=== PATIENT | female | born 1955 | race Caucasian/White ===

== ENCOUNTER 2019-07-06 17:32 | Observation (INO) | payer MEDICARE ==
[2019-07-06] MEDS ORDERED: Fentanyl 100 MCG/2 ML VIAL ONE (17:56)
[2019-07-06] MEDS ORDERED: Acetaminophen 650 MG Suppository PR PRN (19:42)
--- NOTE | 2019-07-06 19:50 | PDOC.HHP ---
Hospitalist HPI - History of Present Illness Snake bite on left hand History of Present Illness: Patient presents after being bit by a copperhead snake earlier today while she was gardening. She was bit on the medial aspect of the left 3rd finger. She states her hand immediately swelled and became painful. She got herself ready and called an ambulance. Patient was seen at [place] [facility] initially, then transferred here for admission and to continue Crofab. Patient states she has been experiencing significant pain but has eased to 5/10 with analgesia given in the ER. Her pain was initially extending to her shoulder, but now is up to her elbow. The swelling has gone down as well. ED Course: Given Morphine, Zofran, Tdap and Crofab at [place] [facility]. Labs done showed: 392 fibrinogen, 25.9 PTT, 12.8 PT, INR 1.0, CK 172, WBC 7.7 She received Fentanyl and more Zofran due to nausea and persisting pain. Hospitalist ROS - Review of Systems Constitutional: reports: sweats. denies: fever, chills, weakness, malaise, other Eyes: denies: pain, vision change, conjunctivae inflammation, eyelid inflammation, redness, other ENT: denies: ear pain, ear discharge, nose pain, nose discharge, nose congestion , mouth pain, mouth swelling, throat pain, throat swelling, other Respiratory: denies: cough, dry, shortness of breath, hemoptysis, SOB with excertion, pleuritic pain, sputum, wheezing, other Cardiovascular: denies: chest pain, palpitations, orthopnea, paroxysmal noc. dyspnea, edema, light headedness, other Gastrointestinal: reports: nausea. denies: vomiting, abdominal pain, diarrhea, constipation, melena, hematochezia, other Genitourinary: denies: dysuria, frequency, incontinence, hematuria, retention, other Musculoskeletal: reports: arm pain (left), hand pain (left with swelling) Neurological: denies: weakness, numbness, incoordination, change in speech, confusion, seizures (normal sensation in LUE), other - Medication Medications: Needs to be verified. Hospitalist History - Past Medical History Source: patient Cardiac: reports: HTN, Hyperlipidemia Pulmonary: reports: COPD Gastrointestinal: reports: GERD Musculoskeletal: reports: Osteoarthritis - Past Surgical History Past Surgical History: reports: Hysterectomy, Hernia Repair (inguinal), Tonsillectomy - Social History Smoking Status: Current every day smoker (1.5 ppd x 30 years) Alcohol: reports: None Drugs: reports: marijuana (previously) Living Situation: Alone Activity level: uses cane/walker - Exam General - other findings: appears to be in mild discomfort, pallor Eye: PERRL, anicteric sclera ENT: normocephalic atraumatic, no oropharyngeal lesions Neck: supple, no lymphadenopathy Heart: RRR, normal peripheral pulses Respiratory: CTAB, no wheezes, no rales, no ronchi, normal chest expansion, no tachypnea Gastrointestinal: soft, non-tender, non-distended, normal bowel sounds, no guarding, no rigidity Extremities - other findings: Swelling of right hand extending to elbow, no erythema Skin - other findings: blister over medial aspect of 3rd left finger where bitten Neurological: cranial nerve grossly intact Musculoskeletal: normal tone Psychiatric: normal affect, normal behavior, A&O x 3 Hospitalist Results - EKG Interpretation EKG: NSR, HR 70 (Done at [place]) Hospitalist H&P A/P - Problem (1) Snake bite Code(s): W59.11XA - BITTEN BY NONVENOMOUS SNAKE, INITIAL ENCOUNTER Status: Acute (2) Left upper extremity swelling Code(s): M79.89 - OTHER SPECIFIED SOFT TISSUE DISORDERS Status: Acute (3) Nausea Code(s): R11.0 - NAUSEA Status: Acute (4) Essential hypertension Code(s): I10 - ESSENTIAL (PRIMARY) HYPERTENSION Status: Acute (5) Hyperlipidemia Code(s): E78.5 - HYPERLIPIDEMIA, UNSPECIFIED Status: Acute (6) GERD (gastroesophageal reflux disease) Code(s): K21.9 - GASTRO-ESOPHAGEAL REFLUX DISEASE WITHOUT ESOPHAGITIS Status: Acute (7) Arthritis Code(s): M19.90 - UNSPECIFIED OSTEOARTHRITIS, UNSPECIFIED SITE Status: Acute (8) Tobacco dependence Code(s): F17.200 - NICOTINE DEPENDENCE, UNSPECIFIED, UNCOMPLICATED Status: Acute - Plan Plan: Continue crofab Repeat labs (CBC, BMP, Fibrinogen, PT, PTT and INR), CK, lactate 12 hours post bite. Will remain on tele/obs. Gentle IV hydration Continue pain control Reconcile home medications once verified Monitor BP GI Prophylaxis with Famotidine. DVT prophylaxis: Mechanical SCDs, walking program consulted. CODE STATUS FULL Surrogate decision maker: her sister Alejandra Butler.
[2019-07-06 20:05] LABS: Lactic Acid 0.9 mmol/L (0.5-2.2)
[2019-07-06 20:09] LABS: ALT (SGPT) 116 U/L (8-55); AST (SGOT) 100 U/L (5-34); Albumin 3.8 g/dL (3.4-4.8); Alkaline Phosphatase 89 U/L (40-110); Anion Gap 14 mmol/L (10-20); BUN (Urea Nitrogen) 17 mg/dL (9.8-20.1); Bilirubin, Total 0.6 mg/dL (0.2-1.2); Calc. Creatinine Clearance 0 mL/min (70-130); Calcium 9.1 mg/dL (7.8-10.44); Carbon Dioxide 25 mmol/L (23-31); Chloride 106 mmol/L (98-107); Estimated GFR-MDRD 76; Globulin 3.3 g/dL (2.4-3.5); Glucose 96 mg/dL (80-115); Magnesium 1.9 mg/dL (1.6-2.6); Potassium 3.4 mmol/L (3.5-5.1); Protein, Total 7.1 g/dL (6.0-8.3); Sodium 142 mmol/L (136-145)
[2019-07-06] MEDS ORDERED: Fentanyl 100 MCG/2 ML VIAL SLOW IVP PRN (21:17)
[2019-07-06 21:26] LABS: #Eosinphils 0.1 thou/uL (0.0-0.7); #Lymphocytes 2.2 thou/uL (1.20-3.40); #Monocytes 0.4 thou/uL (0.11-0.59); %Basophils 0.3 % (0.0-1.0); %Eosinophils 0.6 % (0.0-10.0); %Lymphocytes 25.1 % (21.0-51.0); %Monocytes 5.1 % (0.0-10.0); %Neutrophils 68.9 % (42.0-75.0); Mean Corpuscular Hemoglobin 29.6 pg (27.0-31.0); Mean Corpuscular Volume 89.8 fL (78.0-98.0); Platelet Count 153 thou/uL (130-400); RBC Distribution Width 13.2 % (11.5-14.5); Red Blood Cell (RBC) Count 5.06 mill/uL (4.20-5.40); White Blood Cell (WBC) Count 8.7 thou/uL (4.8-10.8)
[2019-07-06 21:30] LABS: PTT 25.6 SEC (22.9-36.1)
[2019-07-06] MEDS ORDERED: Ondansetron PF 4 MG/2 ML Vial IVP PRN (21:30)
[2019-07-06] MEDS ORDERED: Morphine 4 MG/ML VIAL SLOW IVP PRN (21:30)
[2019-07-06] MEDS ORDERED: HOLD ALL ANTI-COAGULANTS/ANTI-PLATELETS/NSAIDS PO SCH (21:30)
[2019-07-06] MEDS ORDERED: diphenhydrAMINE 50 MG/ML VIAL IVP PRN (21:30)
[2019-07-06 21:39] LABS: Lactic Acid 0.9 mmol/L (0.5-2.2)
[2019-07-06] MEDS: Famotidine/PF 20 mg/2ml Vial SLOW IVP SCH (21:47)
[2019-07-06] MEDS: Crotalidae Polyvlnt Antivenin 2 GM in Sodium Chloride 0.9% 250 ML 250 ML IVPB SCH (21:47)
[2019-07-06 22:02] VITALS: BMI 39.0
[2019-07-07] MEDS: Crotalidae Polyvlnt Antivenin 2 GM in Sodium Chloride 0.9% 250 ML 250 ML IVPB SCH ×2 (04:04→11:18)
[2019-07-07 04:23] LABS: Bacteria/HPF None Seen HPF (None Seen); Bilirubin Negative (Negative); Blood, Urine Negative (Negative); Clarity Clear (Clear); Glucose, Urine (Dipstick) Normal (Negative); Leukocyte Negative Leu/uL (Negative); Nitrite Negative (Negative); Protein, Urine (Dipstick) 30 mg/dL (Neg-Trace); RBC/HPF 0-3 HPF (0-3); Squamous Epithelial 0-3 HPF (0-3); Urobilinogen Normal mg/dL (Less than 2); WBC/HPF 0-3 HPF (0-3)
[2019-07-07 04:25] LABS: Urine Culture Reflex No No
[2019-07-07] MEDS: Hydrochlorothiazide 25 MG TAB PO SCH (09:10)
[2019-07-07] MEDS: Metoprolol Tartrate 25 MG TAB PO SCH ×2 (09:11→20:19)
[2019-07-07] MEDS: Losartan 25 MG TAB PO SCH (09:11)
[2019-07-07] MEDS: Acetaminophen 325 MG TAB PO PRN ×3 (09:11→20:19)
[2019-07-07] MEDS: Famotidine/PF 20 mg/2ml Vial SLOW IVP SCH ×2 (09:13→20:19)
--- NOTE | 2019-07-07 14:06 | PDOC.HOSPP ---
- Subjective Encounter Date: 07/07/19 Subjective: The patient was seen and examined. Her left hand swelling and tenderness are improving since yesterday. - Objective Vital Signs & Weight: Vital Signs (12 hours) Temp Pulse Resp BP Pulse Ox 07/07/19 12:00 99 F 66 20 143/89 H 97 07/07/19 07:41 98.6 F 79 20 147/89 H 93 L 07/07/19 04:00 97.9 F 74 16 119/74 95 Weight Admit Weight 220 lb Weight 220 lb 6.4 oz I&O: 07/06/19 07/07/19 07/08/19 06:59 06:59 06:59 Intake Total 800 601 Output Total 450 Balance 350 601 Result Diagrams: 07/06/19 21:15 07/06/19 19:38 Hospitalist ROS - Medication Medications: Active Medications Generic Name Dose Route Start Last Admin Trade Name Freq PRN Reason Stop Dose Admin Acetaminophen 650 mg 07/06/19 19:42 07/07/19 09:11 Tylenol PO 650 mg Q4H PRN Administration Headache/Fever/Mild Pain (1-3) Famotidine 20 mg 07/06/19 21:00 07/07/19 09:13 Pepcid SLOW IVP 20 mg Q12HR RIKA Administration Hydrochlorothiazide 12.5 mg 07/07/19 09:00 07/07/19 09:10 Hydrochlorothiazide PO 12.5 mg DAILY RIKA Administration Losartan Potassium 100 mg 07/07/19 09:00 07/07/19 09:11 Cozaar PO 100 mg DAILY RIKA Administration Metoprolol Tartrate 25 mg 07/07/19 09:00 07/07/19 09:11 Lopressor PO 25 mg BID RIKA Administration Sodium Chloride 10 ml 07/07/19 09:00 07/07/19 09:14 Flush - Normal Saline IVF 10 ml Q12HR RIKA Administration - Exam General Appearance: awake alert ENT: normocephalic atraumatic Neck: supple Heart: RRR Respiratory: normal chest expansion, no tachypnea Extremities: no cyanosis, no clubbing, 1+ LE edema Psychiatric: normal affect, A&O x 3 Hosp A/P - Plan (1) Snake bite Code(s): W59.11XA - BITTEN BY NONVENOMOUS SNAKE, INITIAL ENCOUNTER Status: Acute (2) Left upper extremity swelling Code(s): M79.89 - OTHER SPECIFIED SOFT TISSUE DISORDERS Status: Acute (3) Nausea Code(s): R11.0 - NAUSEA Status: Acute (4) Essential hypertension Code(s): I10 - ESSENTIAL (PRIMARY) HYPERTENSION Status: Acute (5) Hyperlipidemia Code(s): E78.5 - HYPERLIPIDEMIA, UNSPECIFIED Status: Acute (6) GERD (gastroesophageal reflux disease) Code(s): K21.9 - GASTRO-ESOPHAGEAL REFLUX DISEASE WITHOUT ESOPHAGITIS Status: Acute (7) Arthritis Code(s): M19.90 - UNSPECIFIED OSTEOARTHRITIS, UNSPECIFIED SITE Status: Acute (8) Tobacco dependence Code(s): F17.200 - NICOTINE DEPENDENCE, UNSPECIFIED, UNCOMPLICATED Status: Acute (1) Snake bite Code(s): W59.11XA - BITTEN BY NONVENOMOUS SNAKE, INITIAL ENCOUNTER Status: Acute (2) Left upper extremity swelling Code(s): M79.89 - OTHER SPECIFIED SOFT TISSUE DISORDERS Status: Acute (3) Nausea Code(s): R11.0 - NAUSEA Status: Acute (4) Essential hypertension Code(s): I10 - ESSENTIAL (PRIMARY) HYPERTENSION Status: Acute (5) Hyperlipidemia Code(s): E78.5 - HYPERLIPIDEMIA, UNSPECIFIED Status: Acute (6) GERD (gastroesophageal reflux disease) Code(s): K21.9 - GASTRO-ESOPHAGEAL REFLUX DISEASE WITHOUT ESOPHAGITIS Status: Acute (7) Arthritis Code(s): M19.90 - UNSPECIFIED OSTEOARTHRITIS, UNSPECIFIED SITE Status: Acute (8) Tobacco dependence Code(s): F17.200 - NICOTINE DEPENDENCE, UNSPECIFIED, UNCOMPLICATED Status: Acute
[2019-07-07 14:18] LABS: Hemoglobin 13.5 g/dL (12.0-16.0); Mean Corpuscular HGB CONC 32.2 g/dL (32.0-36.0); Mean Corpuscular Hemoglobin 29.1 pg (27.0-31.0); Mean Corpuscular Volume 90.5 fL (78.0-98.0); Mean Platelet Volume 9.2 fL (7.4-10.4); Platelet Count 148 thou/uL (130-400); RBC Distribution Width 13.2 % (11.5-14.5); Red Blood Cell (RBC) Count 4.64 mill/uL (4.20-5.40)
[2019-07-07 14:23] LABS: PTT 25.6 SEC (22.9-36.1); Prothrombin Time 12.8 SEC (12.0-14.7)
[2019-07-07 14:53] LABS: Band 3 % (5-11); Eosinophils 3 % (0-10); Lymphocytes 31 % (21-51); MDiff Complete? YES; Monocytes 4 % (0-10); Neutrophil 56 % (42-75); Platelet Morphology Comment Appears Adequate; RBC Morphology Normal; Reactive Lymphocytes 3 % (0-10)
[2019-07-07 20:01] LABS: Lactic Acid 1.7 mmol/L (0.5-2.2)
[2019-07-08] MEDS: Acetaminophen 325 MG TAB PO PRN ×2 (02:13→08:26)
[2019-07-08 08:06] VITALS: BP 175/75; TEMP 98.6
[2019-07-08] MEDS: Losartan 25 MG TAB PO SCH (08:25)
[2019-07-08] MEDS: Famotidine/PF 20 mg/2ml Vial SLOW IVP SCH (08:25)
[2019-07-08] MEDS: Hydrochlorothiazide 25 MG TAB PO SCH (08:26)
[2019-07-08] MEDS: Metoprolol Tartrate 25 MG TAB PO SCH (08:26)
--- NOTE | 2019-07-08 19:16 | DIS ---
DATE OF ADMISSION: 07/06/2019 DATE OF DISCHARGE: 07/08/2019 DISCHARGE DIAGNOSES: 1. Snake bite. 2. Left upper extremity swelling. 3. Nausea. 4. Essential hypertension. 5. Hyperlipidemia. 6. Gastroesophageal reflux disease. 7. Arthritis. 8. Tobacco dependence. DISCHARGE MEDICATIONS: 1. Tylenol No.3 one tablet p.o. q.6 p.r.n. for pain x20 tablets. 2. Pravastatin 40 mg orally nightly. 3. Oxybutynin 5 mg orally t.i.d. 4. Olmesartan/hydrochlorothiazide 40/12.5 mg orally daily. 5. Metoprolol tartrate 25 mg orally twice daily. 6. Dexlansoprazole 60 mg orally daily. HISTORY OF PRESENT ILLNESS AND BRIEF HOSPITAL COURSE: The patient is a 63-year-old female with past medical historyof hypertension, hyperlipidemia, COPD, osteoarthritis, and GERD who presented to the ER after being bitten by a copperhead snake earlier on the day of admission while gardening. The patient stated that the bite was on the medial aspect of the left third finger. She stated that her hand immediately swelled and became painful. The patient was placed in observation and her left lower extremity swelling noted to be progressing, so CroFab was initiated and the patient received three doses. Over the duration of her hospital stay, her left upper extremity swelling has decreased significantly and she is now able to move her fingers. No neurological signs were noted during the observation period. Her blood work was negative for any coagulopathies on multiple followups. At this time, the patient was stable for discharge with outpatient followup with PCP in 1 week. Job ID: [id number]
== END 2019-07-08 12:54 | disposition home or self-care (01) ==
LOC: ERS 17:32 → INTOOBSV 18:46 → T4-B 18:46 → 2SE 21:34
PROVIDERS: ADMIT Internal Medicine; ATTEND Internal Medicine
DX: T63.091A Toxic effect of venom of other snake, accidental (unintentional), initial encounter (principal); I10 Essential (primary) hypertension; E78.5 Hyperlipidemia, unspecified; J44.9 Chronic obstructive pulmonary disease, unspecified; K21.9 Gastro-esophageal reflux disease without esophagitis; F17.210 Nicotine dependence, cigarettes, uncomplicated; Z79.899 Other long term (current) drug therapy
CPT/HCPCS: 80053; 81001; 82550; 83605; 83735; 83874; 85007; 85025; 85027; 85384; 85610 ×2; 85730 ×2; 86850; 86900; 86901; 94760; 96365; 96366; 96375 ×2; 96376 ×2; 97139; 99285; G0378 ×3; J0840 ×2; J3010; J7050 ×2; 36415; 96374; S0028